=== PATIENT | female | born 1990 | race Caucasian/White ===

== ENCOUNTER → 2025-01-26 11:59 | Outpatient (CLI) | payer OTHER, SELFPAY ==
--- NOTE | 2025-01-26 12:01 | DI.US.S_ITS ---
PROCEDURE: US PELVIC COMPLETE INDICATIONS: RLQ pain, improved, prior US abnormality TECHNIQUE: Real-time scanning was performed of the pelvic organs, with image documentation. Additional endovaginal scanning was necessary due to incomplete visualization of the adnexal and endometrial structures by transabdominal scanning. COMPARISON: None. FINDINGS: Uterus: Uterus is anteverted and normal in size at 8.1 x 5.4 x 4.2 cm. The myometrium is homogeneous. The endometrium measures 8 mm combined thickness. No focal lesion seen Ovaries: The right ovary measures 3.3 x 2.3 x 1.9 cm, with a calculated ovarian volume of 7.5 cc. The left ovary measures 2.6 x 2.7 x 1.6 cm, with a calculated ovarian volume of 5.9 cc. The ovaries have a normal sonographic appearance. Less than 12 follicles can be seen in each ovary. In the right adnexa, from the uterus and the ovaries there is a elongated solid structure measuring 2.4 x 1.2 x 0.9 cm. No internal flow. Other: No pathologic free abdominal or pelvic fluid. IMPRESSION: 1. Elongated solid avascular structure in the right adnexa , may be due to thickening of the salpinx, broad ligament leiomyoma or possibly endometriotic implants. This can be further assessed with MRI. 2. No significant lesion the uterus. We strive to produce accurate, complete, and clear reports of imaging services. To assist us in improving patient care, this report was composed using standard report templates and voice recognition software. Therefore, it may contain abnormal punctuation, insertions and/or omissions. Occasional wrong-word or sound-alike substitutions may occur. Though we review the report and make efforts to correct it, we do recommend that the report be read carefully in proper context to recognize any text inaccuracies. Dictated by: Aly Hinds M.D. on 01/26/2025 at 20:41 Approved by: Aly Hinds M.D. on 01/26/2025 at 20:46
== END ==
PROVIDERS: Referring Provider Obstetrics & Gynecology; Visit Provider Obstetrics & Gynecology
DX: R10.31 Right lower quadrant pain (principal); R19.8 Other specified symptoms and signs involving the digestive system and abdomen; R10.20 Pelvic and perineal pain unspecified side
CPT/HCPCS: 76830; 76856

== ENCOUNTER 2025-02-18 06:26 | Day surgery (SDC) | payer OTHER, SELFPAY ==
[2025-02-04 12:08] VITALS: BMI 23.6
--- NOTE | 2025-02-18 | PATH_ITS ---
[facility] Accession Number: [id number] No. of containers..01 Tissue . 01 Material submitted: . pelvis - PELVIC ADHESION . 01 Diagnosis: PELVIC ADHESION, BIOPSY: Mesothelial-lined fibrous tissue with recent and old organizing hemorrhage, and rare endometrial-like gland and stroma present, favor rare focus of endometriosis. Rare calcifications without associated atypia present. Negative for malignancy. MRV 03/05/2025 1525 Local . 01 Electronically signed: . Luis A Pena MD, Pathologist NPI- [id number] . 01 Gross description: . The specimen is received in formalin with two patient identifiers and pelvic adhesions and consists of a 1.5 x 1.0 x 0.3 cm aggregate of ramirez-brown, fibromembranous tissue admixed with scant clotted blood. The specimen is submitted in toto in cassette A1. ([id number]) /MRV 02/26/2025 1152 Local . 01 Microscopic: . Initial and multiple deeper levels have been examined and CD10 immunostain is performed with focal staining. . The histologic features favor focal involvement by endometriosis. . Clinical correlation is recommended. . * This test was developed and the performance characteristics were validated by [facility]. It has not been cleared or approved by the U.S. Food and Drug Administration. . 01 Pathologist provided ICD-10: R10.9, R19.09 . 01 CPT . 688432, N09398 Specimen Comment: A courtesy copy of this report has been sent to [phone] Performed at: [address] [facility] [place], [place], [place] [id number] MD Shashank Vargas MD Phone: [phone]
[2025-02-18] MEDS: SCOPOLAMINE 1 PATCH TOP (07:00)
[2025-02-18] MEDS: ACETAMINOPHEN IV 1,000 MG/100 ML VIAL 400 MG IV (07:00)
[2025-02-18] MEDS: LACTATED RINGERS 1,000 ML 42 ML IV (07:00)
[2025-02-18 07:06] VITALS: BP 130/83; PULSE 99; RESP 16; TEMP 36.2; O2SAT 100
--- NOTE | 2025-02-18 08:28 | SUR.OPER ---
Supine on padded OR bed, head on pillow, safety strap placed across shoulders, arms padded and tucked at sides, legs in blue stirrup. all fingers free from compression. all positioning approved and directed by surgeon prior to start of procedure.
[2025-02-18] MEDS: BUPivacaine 0.25% W/ EPI (PF) 30 ML VIAL INJ (08:35)
--- NOTE | 2025-02-18 10:22 | P.OP_ITS ---
Operative Date/Time/Diagnoses Date of procedure: 02/18/25 Time of procedure: 08:15 Pre-op diagnosis: Right lower quadrant/pelvic pain Post-op diagnosis: other (Same, stage II pelvic peritoneal endometriosis) Procedure & Clinicians Procedure: Procedures Operation Date: 02/18/25 07:45 Actual Procedure Side Surgeon p Robotically assisted diagnostic laparoscopy with excision and fulguration of endometriosis s Excision and/or lysis of pelvic peritoneal adhesions Cristobal Wren MD Indications: Hafsa is a 34-year-old , who is currently bleeding vaginally who presents in follow-up for evaluation of a ?pelvic mass? discovered on ultrasound at [facility]. Patient experienced menarche at age 12 and has had regular predictable menses throughout her reproductive life. Her last period was prior to her last as she had an IUD inserted at her six-month visit and has not had a period since that time. About 6 weeks ago, the patient began having gradual development of vague pain in her lower abdomen which she 1st noticed with a bowel movement and pressure with both bowel move ments and emptying her bladder. Her 1st day of severe pain was 9 days ago when she experienced in the sharp sudden onset of pain primarily in the right lower quadrant which felt like diarrhea was about to happen but none occurred. This occurred while she was out on a walk and she was concerned that it may be related to her IUD so she self removed her Mirena IUD. On 11/20 however the pain has become intolerable and she was seen in the emergency room at [facility] as she was again on 11/21/2024. Pain is markedly exacerbated by walking which becomes so severe that she has to stop. She gets some relief with 800 mg of ibuprofen but has also been using oxycodone prescribed through the emergency department. Her pain lessened significantly when laying down and not moving. Patient removed her IUD as stated above and her is planning to get a vasectomy in about 2 months. Pelvic imaging performed at [facility] on 11/20/2024 shows the uterus to be anteverted and normal in size at 8.3 x 3.9 x 4.8 cm. Myometrium is described as heterogenous. The endometrium measures 4. 4 mm in combined thickness. The right ovary measures 2.9 x 2.8 x 1.8 cm with a calculated ovarian volume of 7.6 cc. The left ovary measures 2.4 x 2.0 x 3.0 cm with a calculated ovarian volume of 8 cc. Appropriate blood flow was noted to both ovaries. Less than 12 follicles were seen in each ovary. There is a heterogenous and nonvascular mass like area in the right adnexal region measuring 3.1 x 1.8 x 2.3 cm. There were no cystic lesions measuring greater than 3 cm. There is no pathologic free or abdominal fluid noted in the pelvis. Since her initial assessment, her pain initially persisted but has now subsided. She is scheduled for robotic assisted laparoscopy with possible right ovarian cystectomy/possible right salpingo- oophorectomy, and possible excision of pelvic or peritoneal endometriosis. She presents today for her scheduled surgery Surgeon: Cristobal Wren Anesthesia Type: General Operative Notes Findings: The uterus is normal in size and shape. It's position is mid to retroverted. There are no abnormalities noted in the anterior cul-de-sac. The posterior cul-de-sac however is extensively involved with filmy pelvic peritoneal adhesions. These were much more prominent on the right side but also involve the ovary and the pelvic sidewall on the left. There are very superficial implants of endometriosis in both pelvic sidewalls as well as the posterior cul-de-sac. The adhesions appeared to be endometriotic in nature and all were removed during the course of the surgery. These involved both ovaries, right greater than left, as well as the distal fallopian tube particularly on the right. There were small fluid-filled spaces between the adhesions but all endometriosis appeared to be very superficial and both ovaries appeared normal with the exception of superficial endometriotic implants on their surface. The distal sigmoid was also involved with these adhesions as well as the rectosigmoid. All adhesions were lysed and/or removed during the course of the surgery. Closure Type: primary Specimen(s): other (Pelvic adhesions) Applied: catheter Estimated blood loss (mL): 20 Blood products transfused: none Procedure in detail: With the patient under satisfactory general anesthesia in the modified dorsal lithotomy position, the perineum, vagina, and abdomen were prepped and draped in the usual manner for total laparoscopic hysterectomy with robotic assist.? A pre-surgical safety time-out was then taken in accordance with [facility] OR protocols.? A bivalve speculum was then placed in the vagina and the cervix visualized.? The anterior lip of the cervix was then grasped with single- tooth tenaculum and the endocervical canal dilated to 4 mm with Hegar dilators.? A Zumi manipulator was then inserted into the endometrial cavity in the bulb inflated so as to hold it in place. Preparations for laparoscopy were initiated.? An 8 mm transverse incision was then made above the umbilicus after infiltration with 0.5% Marcaine with epinephrine.? A varies needle was then used to insufflate the abdominal cavity and once properly insufflated, an 8 mm trocar and sleeve were introduced through the incision into the abdominal cavity.? Correct placement of the sleeve in the abdominal cavity was confirmed with a 5 mm scope.? Two additional 8 mm trocars and sleeves were then placed laterally on the patient's right side using a similar technique, and 1 additional 8 mm trocar was then placed laterally on the patient's left side. ?The patient was then placed in 27 degree Trendelenburg position. ?The robot was brought in and positioned on the patient's left side. ?The robotic scope was then placed through the 8 mm #2 Port and aimed at the uterus as the focal point of surgery.? A vessel sealer, fenestrated bipolar grasper, and laparoscopic scissors were then placed in the 3 remaining ports.? The pelvis was carefully inspected with the findings as noted above.? Attention was then turned to the left hemipelvis were the tube and ovary were elevated so as to fully expose the surface of the ovary. Filmy adhesions were coagulated and divided with judicious use of monopolar current. [employer] adhesions were taken and submitted as pathologic specimen to confirm the diagnosis of endometriosis. A small area of hemosiderin deposit on the right pelvic sidewall was then excised and also submitted as a a specimen. The entire posterior cul-de-sac was then closely inspected and any area suspected of possibly being superficial peritoneal endometriosis, was coagulated using the backside of the monopolar scissors. Stephani fall avoidance of all underlying structures was maintained at all times. The pelvis was then thoroughly irrigated and all areas of monopolar coagulation were cleaned and reinspected for either residual atul or persistent evidence of possible peritoneal endometriosis. Once all of the abnormalities were confirmed as having been removed from the posterior cul-de-sac and both adnexa as well as the anterior cul-de-sac, the pneumoperitoneum was vented.? The laparoscopy port sleeves were then removed and each of the incisions were closed with 4-0 Monocryl using inverted interrupted stitches.? The port incisions were then covered with an appropriate dressing and the patient was awakened from anesthesia.? She was then transferred to the PACU for a period of observation and recovery after having tolerated the procedure well. Complications: none Post-operative Condition: stable Disposition: PACU Plan for aftercare: Routine postoperative care with follow-up planned for 2 weeks after surgery
[2025-02-18 10:34] VITALS: BP 117/59; PULSE 70; RESP 15; TEMP 37; O2SAT 100
[2025-02-18 10:39] VITALS: BP 110/55; PULSE 89; RESP 21; TEMP 36.7; O2SAT 100
[2025-02-18] MEDS: ONDANSETRON 4 MG/2 ML INJ IV (11:05)
[2025-02-18 11:35] VITALS: BP 128/80; PULSE 99; RESP 16; TEMP 36.2; O2SAT 98
== END 2025-02-18 12:11 | disposition home or self-care (01) ==
PROVIDERS: Referring Provider Obstetrics & Gynecology; Visit Provider Obstetrics & Gynecology
PROC: 0UB94ZZ Excision of Uterus, Percutaneous Endoscopic Approach (ICD-10-PCS; CPT 58662; principal; 2025-02-18 07:45)
DX: R10.21 Pelvic and perineal pain right side (principal); N80.33 Superficial endometriosis of the pelvic sidewall; N80.321 Superficial endometriosis of the posterior cul-de-sac; N73.6 Female pelvic peritoneal adhesions (postinfective)
CPT/HCPCS: 58662; 81025; S2900; J0131; J1100; J1885; J2250; J2405; J2704; J3010; J7120